=== PATIENT | male | born 1970 | race Caucasian/White ===

== ENCOUNTER 2018-11-17 14:55 | Inpatient (IN) | payer OTHER ==
[~2018-11-17] VITALS: Ht 180.3 cm; Wt 105.7 kg
--- NOTE | ~2018-11-17 | HC ---
[facility] [place] [address] CONSULTATION Name: JUVENAL PRADO Room #: 360- ADM IN M.R.#: [id number] Admission: 11/17/18 ������������������ Attend Phys: Joel Worrell MD Discharge: ������������������ Date of : 68 Report #: [id number] THIS REPORT FOR: //name// CC: Joel Worrell [facility] physician/PCP DATE OF SERVICE: 11/17/2018 HISTORY OF PRESENT ILLNESS: This is a 47-year-old male patient who was evaluated by me for an episode he had where he could not talk. This lasted for a few minutes. There were some headaches after that. He does indicate that he has some history of migraine in the past. The history is not very well defined. He has returned back to his baseline now. REVIEW OF SYSTEMS: Positive for chest pain. This is going on for a long time. He does appear to have a history of migraine in the past. He feels back to his baseline for the time being. He did drink significant amount of alcohol last Friday, but usually he drinks about two alcoholic drinks when he drinks. His rest of the 14-point review of systems was mostly unremarkable and he was not complaining of any visual symptoms now, but he said he did have some headache earlier. PAST MEDICAL HISTORY: Looks like positive for migraine, but he has never been diagnosed with that. FAMILY HISTORY: Unremarkable. SOCIAL HISTORY: He drinks alcohol, but he does not use any drugs. PHYSICAL EXAMINATION: The patient's examination indicate he is alert. He is responsive. He can follow simple commands. His speech, concentration, fund of knowledge and memory is at his baseline. Cranial nerve examination 2-12 looks unremarkable. He does not have any asymmetrical strength, sensation or reflexes on either side. There is no meningeal sign. There is no carotid bruit. Cardiac examination is unremarkable. Blood pressure is 133/88, respirations 16, pulse is 96 and temperature is 98.7. LABORATORY DATA: His white count for some reason is 13.3. His CT was okay and I had recommended CT angiogram of the head and neck, but for some reason they just did head and that appeared unremarkable. 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 He will need an MRI and we will also go ahead and do an MRA of the neck at that time. CT angiogram of the head looks unremarkable making it unlikely that it is aneurysm. We will check him for lipid profile and sed rate and I did advise him to cut back his alcohol intake. He will also need an echo [address] [address] CONSULTATION Name: JUVENAL PRADO Room #: 360-P [facility] IN M.R.#: [id number] Admission: 11/17/18 ������������������ Attend Phys: Joel Worrell MD Discharge: ������������������ Date of : 68 Report #: [id number] to look for any patent foramen ovale and overnight we can monitor him on telemetry. Thank you very much for this referral. ��������������������������������������������� ���������������������������������������� By: ��������������������������������������������� 1837 0830 MD valentina Pimentel
--- NOTE | ~2018-11-17 | EEG ---
[facility] [place] [address] ELECTROENCEPHALOGRAM Name: JUVENAL PRADO Room #: 360-P ADM IN M.R.#: [id number] ������������������ Admission: 11/17/18 ������������������ Attend Phys: Joel Worrell MD Discharge: ������������������ Date of : 68 Report #: [id number] ����������������������������������������������������������������� [id number] THIS REPORT FOR: //name// CC: Joel Worrell [facility] physician/PCP This patient had an episode of memory loss. EEG is being done to evaluate that further. Background activity in this patient's EEG is about 11 Hz and 40 microvolt. It is a symmetrical activity. The patient went to sleep and that is associated with bilaterally symmetrical sleep spindle and vertex sharp waves. Throughout the record, no active epileptiform activity was noticed. IMPRESSION: This patient's EEG is within normal limits. Thank you very much for this referral. ���������������������������������������� ���������������������������������������� By: ��������������������������������������������� 1412 1430 Cholo Jain MD /nt
[2018-11-17 15:08] VITALS: BP 138/93
[2018-11-17 16:01] LABS: ABSOLUTE NEUTROPHILS 11.1 thou/uL (1.4-8.2); BASOPHILS 0.2 % (0.0-2.0); EOSINOPHILS 0.1 % (0.0-3.0); HEMATOCRIT 44.4 % (42.0-52.0); LYMPHOCYTES 8.7 % (24.0-44.0); MCH 28.8 pg (26.0-34.0); MCHC 33.7 g/dL (28.0-37.0); MCV 85.4 fL (80.0-100.0); MONOCYTES 7.3 % (1.0-8.0); PLATELET COUNT 335 thou/uL (150-400); POLYS 83.7 % (36.0-66.0); RBC 5.19 mil/uL (4.50-6.00); RDW 13.7 % (10.5-14.5); WBC 13.3 thou/uL (4.0-11.0)
[2018-11-17 16:06] LABS: ANION GAP 12 mmol/L (7-16); BUN 14 mg/dL (7-18); CALCIUM 9.5 mg/dL (8.5-10.1); CHLORIDE 103 mmol/L (98-107); CO2 25 mmol/L (21-32); CREATININE 1.1 mg/dL (0.7-1.3); GLUCOSE 109 mg/dL (74-106); POTASSIUM 3.8 mmol/L (3.5-5.1); SODIUM 140 mmol/L (136-145)
[2018-11-17 16:14] LABS: TROPONIN-I <0.06 ng/mL (<0.06)
[2018-11-17 16:20] LABS: PROTIME 10.1 Seconds (9.3-11.4)
--- NOTE | 2018-11-17 16:29 | EKG ---
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1970 Requested By: Gerry Jordan Order Number: [id number] MD: Nikita Martinez Measurements Intervals [place] Rate: 104 P: 36 WV: 159 QRS: 7 QRSD: 82 T: 2 QT: 374 QTc: 492 Interpretive Statements Sinus tachycardia Probable left atrial enlargement Low voltage, precordial leads Borderline repolarization abnormality No previous ECG available for comparison Electronically Signed On 11-17-2018 16:29:36 CDT by Nikita Martinez [email or web address] ��������������������������������������������� <ELECTRONICALLY SIGNED> ���������������������������������������� By: Nikita Martinez MD ��������������������������������������������� 11/17/18 1629 1616 1616 Nikita Martinez MD /FANG
[2018-11-17 16:44] LABS: CALCIUM 9.5 mg/dL (8.5-10.1); POTASSIUM 3.9 mmol/L (3.5-5.1)
[2018-11-17 16:49] LABS: ALBUMIN 4.2 g/dL (3.4-5.0); TOTAL BILIRUBIN 0.5 mg/dL (<0.1-1.0); TOTAL PROTEIN 7.4 g/dL (6.4-8.2)
[2018-11-17 18:09] VITALS: BP 133/88
[2018-11-17 18:30] VITALS: BP 131/71
[2018-11-17 19:00] VITALS: BP 134/87
--- NOTE | 2018-11-17 22:12 | NUR ---
PATIENT WAS A NEW ADMISSION TO THE UNIT THIS SHIFT. HE ARRIVED VIA CART FROM THE ER AND WAS ABLE TO AMBULATE TO BED WITHOUT INCIDENT. PATIENT IS FULLY ALERT AND ORIENTED AND ABLE TO PARTICIPATE IN ADMISSION PROCESS. NURSE TO COMPLETE ADMISSION AND INITIATE CARE PLAN.
[2018-11-17 23:38] VITALS: BP 135/86
[2018-11-18] VITALS (8 sets, daily range): BP systolic 127–147; BP diastolic 74–92
--- NOTE | 2018-11-18 04:43 | NUR ---
PATIENT IS PROGRESSING IN HIS CARE PLAN. VITAL SIGNS STABLE WITH PATIENT HAVING NO COMPLAINTS OF NAUSEA. PATIENT DID COMPLAIN OF MINIMAL PAIN DUE TO HEADACHE WHICH WAS TREATED EFFECTIVELY WITH NON PHARMACOLOGICAL INTERVENTIONS. FULLY ORIENTED, PATIENT IS ABLE TO PARTICIPATE IN CARE AND CALL APPROPRIATELY FOR REQUESTS. NEURO EXAMS PROVIDED Q4 WITH PATIENT NOT EXHIBITING ANY OF THE SIGNS WHICH LED HIM TO THE EMERGENCY ROOM. PATIENT HAS BEEN ABLE TO FREELY AMBULATE AROUND THE ROOM INCIDENT FREE AND APPEARS STRONG AND BALANCED WHEN WALKING. MRI OF HEAD AND CARDIAC STRESS TEST SCHEDULED THIS MORNING WITH PATIENT ANXIOUS FOR POSSIBLE DISCHARGE IN AFTERNOON. CONTINUE PLAN OF CARE.
[2018-11-18 05:24] LABS: HEMATOCRIT 42.6 % (42.0-52.0); HEMOGLOBIN 14.4 gm/dL (14.0-18.0); MCH 29.1 pg (26.0-34.0); MCHC 33.8 g/dL (28.0-37.0); MCV 86.1 fL (80.0-100.0); RBC 4.95 mil/uL (4.50-6.00); RDW 13.7 % (10.5-14.5); WBC 7.9 thou/uL (4.0-11.0)
[2018-11-18 05:38] LABS: ANION GAP 9 mmol/L (7-16); BUN 14 mg/dL (7-18); CALCIUM 8.7 mg/dL (8.5-10.1); CHLORIDE 105 mmol/L (98-107); CO2 26 mmol/L (21-32); GLUCOSE 107 mg/dL (74-106); POTASSIUM 3.7 mmol/L (3.5-5.1); SODIUM 140 mmol/L (136-145); TROPONIN-I <0.06 ng/mL (<0.06)
--- NOTE | 2018-11-18 07:32 | NUR ---
care of pt assumed this am @ ~0700. pt awake aox4 up ad mariah in room. pt aware of impending mri and stress test this am. no co pain, soa and no n/v/d. pt verbalized his desire to go home sandro after these tests are complete. transporter here this am to take pt downstairs, ticket to ride complete.
--- NOTE | 2018-11-18 10:35 | EXE ---
[facility] [address] [place] [address] STRESS ECHOCARDIOGRAM Name: JUVENAL PRADO Room #: 360-P ADM IN M.R.#: [id number] ������������� Admission: 11/17/18 ������������� Attend Phys: Joel Worrell MD Discharge: ��� ������������� ��� Date of : 68 Date of Service: 11/18/18 1035 �� Report #: [id number] �������� ��������������������������������������������[id number] THIS REPORT FOR: //name// APPROVED REPORT Study performed: 11/18/2018 08:45:05 Exam: Stress Echocardiogram Indication: Intermittnet chest pain, atypical Patient Location: Echo lab Stress Nurse: Jeaneth Pittman RN Room #: 360 Status: routine Ht: 5 ft 11 in HR: 78 bpm BP: 131/90 mmHg Rhythm: NSR Medical History Allergies: No known drug allergies Procedure The patient underwent an Exercise Stress Test using the Braden Protocol. Blood pressure, heart rate, and EKG were monitored. An Echocardiogram was performed by emergency room technician in four stages in quad fashion. At peak stress, four selected images were obtained and placed side by side with resting images for comparison. Stress Test Details Stress Test: Exercise stress testing was performed using a Braden protocol. HR Resting HR: 78 bpm Max Heart Rate (APMHR): 172 bpm Max HR Achieved: 176 bpm Target HR (85% APMHR): 146 bpm % of APMHR: 102 Recovery HR: 103 bpm HR response to stress: Normal HR response to stress BP Resting BP: 131/90 mmHg Max BP: 178/78 mmHg Recovery BP: 136/80 mmHg BP response to stress: Normal blood pressure response to stress. ECG [facility] [address] [place] [address] STRESS ECHOCARDIOGRAM Name: JUVENAL PRADO Room #: 360-P [facility] IN M.R.#: [id number] ������������� Admission: 11/17/18 ������������� Attend Phys: Joel Worrell MD Discharge: ��� ������������� ��� Date of : 68 Date of Service: 11/18/18 1035 �� Report #: [id number] �������� ��������������������������������������������[id number] Resting ECG: Sinus Rhythm Stress ECG: Sinus Tachycardia Arrhythmia: No signficant arrhythmias Recovery ECG: Sinus Rhythm Clinical Reason for Termination: Maximal effort, Completed protocol Stress Symptoms: None Exercise duration: 13 min 11 sec Highest Stage Achieved: Stage 5: 5.0 mph at 18% grade. Exercise capacity: 17.50 METs Stress ECG Conclusion 1. subjectively negative for ischemia 2. electrocardiographically negative for ischemia 3. excellent functional capacity Pre-Stress Echo The resting Echocardiogram showed normal left ventricular contractility with an estimated Ejection Fraction of about 55%. No significant valvular abnormalites noted. Normal wall motion in all segments on baseline images. Post-Stress Echo The stress Echocardiogram showed normal left ventricular contractility with an estimated Ejection Fraction of about >70%. Normal augmentation of wall motion in all segments on post stress images. Conclusion Clinical Response: Non-ischemic Exercise Capacity: Superior Stress ECG Response: Non-ischemic Stress Echo Images: Non-ischemic 1. low risk study Other Information Study Quality: Adequate <Conclusion> 1. low risk study ��������������������������������������������� <ELECTRONICALLY SIGNED> ���������������������������������������� By: Ray Shaikh MD ��������������������������������������������� 11/18/18 1035 1035 Ray Shaikh MD /INF
[2018-11-18 12:08] LABS: TSH 2.471 uIU/mL (0.358-3.740)
[2018-11-18 13:13] LABS: AMP/METHAMP Negative (Negative); BARBITURATES Negative (Negative); BENZODIAZEPINES Negative (Negative); COCAINE Negative (Negative); METHADONE Negative (Negative); OPIATES Negative (Negative); PCP Negative (Negative)
[2018-11-18] MEDS ORDERED: ASPIR 8181 MG PO (17:40)
== END 2018-11-18 18:48 | disposition home or self-care (01) | DRG 72 ==
LOC: ER 14:55 → 3W 17:01 → EROBS 17:01 → 3W 18:30 → ENTRNSPT 11-18 18:35 → 3W 11-18 18:48
PROVIDERS: Emergency Medicine; Hospitalist; Psychiatry & Neurology Neuromuscular Medicine; ADMIT Hospitalist
DX: G45.4 Transient global amnesia (principal); R07.89 Other chest pain; G43.409 Hemiplegic migraine, not intractable, without status migrainosus; Z79.82 Long term (current) use of aspirin; Z90.49 Acquired absence of other specified parts of digestive tract
CPT/HCPCS: 10879